=== PATIENT | female | born 1965 | race Caucasian/White ===

== ENCOUNTER 2018-01-05 12:41 | Observation (INO) | payer OTHER, SELFPAY ==
[2017-12-29 11:10] VITALS: BP 125/71; PULSE 61; RESP 16; TEMP 36.7; O2SAT 97; BMI 33.9
--- NOTE | 2017-12-29 11:26 | SDCEKG_ITS ---
Test Reason : Blood Pressure : / mmHG Vent. Rate : 062 BPM Atrial Rate : 062 BPM P-R Int : 164 ms QRS Dur : 082 ms QT Int : 404 ms P-R-T Axes : 029 025 029 degrees QTc Int : 410 ms Normal sinus rhythm with sinus arrhythmia Normal ECG Confirmed by KIMBERLY HARMAN, MITCHELL ([id number]), videotape editor KYLE MENDOZA ([id number]) on 01/01/2018 3:05:49 PM Referred By: Janet Wheeler Confirmed By:MITCHELL HARRIS MD
[2017-12-29 11:50] LABS: Mucous, Urine 0 SEEN /hpf (<or=2+); Red Blood Cells-Urine 0 SEEN /hpf (0-5)
[2017-12-29 12:36] LABS: Color, Urine Yellow (Yellow); Glucose, Dipstick Normal (Normal); Ketone-Dipstick Negative (Negative); Leukocyte Esterase-Dipstick 500 /ul (Negative); Nitrite-Dipstick Negative (Negative); Occult Blood-Urine 10 /ul (Negative); Protein-Dipstick 15 mg/dl (Negative); Urine Bilirubin Dipstick Negative (Negative); Urine Clarity Sl. Cloudy (Clear); Urine Urobilinogen 4 mg/dl (Normal)
[2017-12-29 12:43] LABS: Squamous Epithelial Cells - UA 5-10 SEEN /hpf (5-10); White Blood Cells 10-25 SEEN /hpf (0-5)
[2017-12-29 12:44] LABS: Hematocrit 38.4 % (37-47); Hemoglobin 12.1 g/dl (12.0-15.0); Mean Corp Hgb Conc 31.5 g/gl (32-36); Mean Corpuscular Hgb 29.6 pg (27.0-32.0); Mean Corpuscular Volume 93.9 fL (81-99); Platelet Count 308 K/mm3 (150-450); RBC Distribution Width CV 13.4 % (11.6-14.6); RBC Distribution Width SD 46.2 fl (35.1-43.9); Red Blood Count 4.09 M/mm3 (4.2-5.4); White Blood Count 8.2 K/mm3 (4.4-11.0)
[2017-12-29 12:46] LABS: Bacteria RARE /hpf (None Seen); Scan Indicated on CBC? Y/N NO
[2018-01-05] VITALS (12 sets, daily range): BP systolic 112–155; BP diastolic 54–99; PULSE 68–96; RESP 16–18; TEMP 36–37.1; O2SAT 91–99; BMI 34.9
[2018-01-05] MEDS: Cefazolin 2 GM in 0.9% Normal Saline 100 ML IV (10:35)
[2018-01-05] MEDS: Lubricating Jelly 60 GM Tube 30 GM TOPICAL (10:55)
[2018-01-05] MEDS: Methylene Blue 1% 100 MG/10 ML VIAL (11:40)
[2018-01-05] MEDS: Estrogens,Conj. 1 Tube 1 DOSE (12:30)
[2018-01-05] MEDS: Dextrose 5%-Lactated Ringers 1,000 ML 100 ML IV ×2 (14:04→22:44)
[2018-01-05] MEDS: HYDROcodone Bitartrate/Apap 5/325 Tablet PO ×2 (16:49→22:43)
[2018-01-05] MEDS: Morphine 2 MG/ML Syringe IV (18:05)
[2018-01-05] MEDS: Cephalexin 500 MG Capsule PO (22:42)
[2018-01-06] MEDS: 0.9% NaCl Peripheral Flush Adult/Peds IV ×7 (00:01→15:58)
[2018-01-06] MEDS: Morphine 2 MG/ML Syringe IV ×5 (03:21→13:14)
[2018-01-06 03:27] VITALS: BP 113/59; PULSE 62; RESP 14; TEMP 36.6; O2SAT 98
[2018-01-06] MEDS: HYDROcodone Bitartrate/Apap 5/325 Tablet PO ×3 (06:05→16:46)
[2018-01-06 09:30] VITALS: BP 101/77; PULSE 75; RESP 18; TEMP 36.7; O2SAT 98
[2018-01-06] MEDS: Cephalexin 500 MG Capsule PO (09:58)
[2018-01-06] MEDS: Docusate Sodium 100 MG Capsule PO (09:58)
--- NOTE | 2018-01-06 10:25 | PCM.PN.GU ---
Physical Exam Subjective: Feeling tender in her right hip and lower back. Had rough night due to pain. Tolerating oral intake, no nausea or vomiting. Arambula and packing still intact. Objective: Arambula catheter with clear yellow urine, arambula and vaginal packing removed without incident. - Physical Exam Vital Signs Temp 98.1 F 01/06/18 09:30 Pulse 75 01/06/18 09:30 Resp 18 01/06/18 09:30 BP 101/77 01/06/18 09:30 Pulse Ox 98 01/06/18 09:30 Intake & Output 01/04/18 01/05/18 01/06/18 23:59 23:59 23:59 Intake Total 2568 / 2568 1481 / 1481 Output Total 1999 1150 / 1150 Balance 568 / 568 331 / 331 Weight: 86.8 kg Intake: Oral 200 / 200 300 / 300 IV fluid/meds 2368 / 2368 1181 / 1181 IV #3 2049 Output: Urine 1999 1150 / 1150 General: Alert, Oriented x3, No apparent distress HEENT: Normocephalic Oral: Moist Mucosa Lungs: Normal air movement Abdomen: Soft Rectal: Exam deferred Skin: No rashes Neurological: Cranial nerves II-XII grossly intact, Muscle tone normal, Coordination normal Psych/Mental Status: Normal Affect, Appropriate Medical Necessity - Tobacco Use Smoking Status: Never smoker Tobacco Use: Non-smoker Assessment/Plan Post Op day #1 anterior repair, SSLF, mid-urethral sling and cystoscopy -arambula and vaginal packing are out, await void and PVR -continue supportive care, ambulation and oral intake -HLIV -plan to D/C later today if doing well and pain controlled. If pain remains uncontrolled, will plan to keep over night for pain control.
--- NOTE | 2018-01-06 10:32 | PCM.DC.URO ---
Discharge Diet: No Restrictions Discharge Activity: May Shower, - - No lifting over 5 pounds. Ok for stairs. No exercise. May resume sexual activity in: 8 weeks - and after being seen by me in the office. Lifting Restrictions: 5 pounds Call your doctor if your incision/area has: Increased Pain/ Swelling, Foul Smelling Discharge, - - vaginal spotting and discharge is to be expected. call if questions. Call your doctor if you observe: Fever of 101 or Higher, Inability to urinate, Inability to have a bowel movement, Using more than one pad per hour Suture Line Care: Avoid Pulling/Pushing Allergies/Adverse Reactions: Allergies No Known Allergies Allergy (Verified 12/29/17 11:04) Medications to take at Discharge Albuterol Inhaler [Ventolin Hfa (SP)] 1 - 2 puff INHALATION Q4H PRN PRN 12/29/17 Ascorbic Acid [Vitamin C] 500 mg PO DAILY@0800 12/29/17 Cyclobenzaprine [Flexeril] 10 mg PO DAILY PRN 12/29/17 Diclofenac Sodium [Voltaren] 100 gm TP DAILY PRN 12/29/17 Docusate Sodium [Colace] 100 mg PO DAILY 12/29/17 Fluticasone 0.05% [Flonase Nasal [place]] 1 spray NASAL DAILY 12/29/17 Hydrocodone/Acetaminophen [[place] 10-325 Tablet] 1 each PO Q6H PRN PRN 12/29/17 Meloxicam [Mobic] 15 mg PO DAILY 12/29/17 Multivitamin/Iron/Folic Acid [One Daily Multivitamin-Iron Tb] 1 each PO DAILY 12/29/17 Primary Care Physician: Jena Orozco,Out of [Primary Care Provider] - Test Results: Test results from this visit will be discussed in further detail at your follow-up appointment, if applicable. Please Follow Up With: Dr. Wheeler - in 2 weeks
--- NOTE | 2018-01-06 10:36 | DCINST_ITS ---
Discharge Diet: No Restrictions Discharge Activity: May Shower, - - No lifting over 5 pounds. Ok for stairs. No exercise. May resume sexual activity in: 8 weeks - and after being seen by me in the office. Lifting Restrictions: 5 pounds Call your doctor if your incision/area has: Increased Pain/ Swelling, Foul Smelling Discharge, - - vaginal spotting and discharge is to be expected. call if questions. Call your doctor if you observe: Fever of 101 or Higher, Inability to urinate, Inability to have a bowel movement, Using more than one pad per hour Suture Line Care: Avoid Pulling/Pushing Allergies/Adverse Reactions: Allergies No Known Allergies Allergy (Verified 12/29/17 11:04) Medications to take at Discharge Albuterol Inhaler [Ventolin Hfa (SP)] 1 - 2 puff INHALATION Q4H PRN PRN Ascorbic Acid [Vitamin C] 500 mg PO DAILY@0800 12/29/17 Cyclobenzaprine [Flexeril] 10 mg PO DAILY PRN 12/29/17 Diclofenac Sodium [Voltaren] 100 gm TP DAILY PRN 12/29/17 Docusate Sodium [Colace] 100 mg PO DAILY 12/29/17 Fluticasone 0.05% [Flonase Nasal [place]] 1 spray NASAL DAILY 12/29/17 Hydrocodone/Acetaminophen [[place] 10-325 Tablet] 1 each PO Q6H PRN PRN 12/29/17 Meloxicam [Mobic] 15 mg PO DAILY 12/29/17 Multivitamin/Iron/Folic Acid [One Daily Multivitamin-Iron Tb] 1 each PO DAILY Primary Care Physician: Jena Orozco,Out of [Primary Care Provider] - Test Results: Test results from this visit will be discussed in further detail at your follow- up appointment, if applicable. Please Follow Up With: Dr. Wheeler - in 2 weeks
--- NOTE | 2018-01-06 11:47 | NURSING ---
Pt up to toilet, voided 100cc of urine and then This nurse bladder scanned for 119ml. Will Call Dr. Janet Wheeler to inform per orders.
--- NOTE | 2018-01-06 12:27 | NURSING ---
paged Dr. Wheeler to inform of PVR.
--- NOTE | 2018-01-06 13:51 | NURSING ---
Pt up and voided 100ml and bladder scanned for 155ml. This nurse called and spoke to Dr. Wheeler, informed of this and first void and PVR. Also informed Doctor that pt is still very painful, asking for Morphine Q3hrs and [place] when it is due b/c nothing helping. Just offered heating pad, pt agreeable. New order for Toradol and d/c Morphine.
[2018-01-06] MEDS: Ketorolac 30 MG/ML Syringe IV (15:58)
[2018-01-06] MEDS: Fluticasone 0.05% 1 SPRAY NASAL.SRY NASAL (15:58)
[2018-01-06 16:02] VITALS: BP 102/47; PULSE 67; RESP 18; TEMP 36.8; O2SAT 97
--- NOTE | 2018-01-06 16:04 | NURSING ---
UP to bathroom in the last 15 min. Ms. Ortega urinated 25cc. This nurse then bladder scanned her again for 303ml. Pt denies feeling of retention. I know I'm going a lot. Will continue to monitor. Kpad given along with Toradol x1.
--- NOTE | 2018-01-06 16:46 | NURSING ---
Pt states the Toradol really helped. Rates pain 6 out of 10.
--- NOTE | 2018-01-06 18:12 | NURSING ---
Pt just up to void and voided 75ml and PVR was 200.
--- NOTE | 2018-01-06 19:45 | NURSING ---
Reviewed Pt's discharge in instructions and gave scripts. Pt Discharge vis wheelchair @ 1999.
--- NOTE | 2018-01-23 12:11 | PCM.IMDPSTOP ---
Immediate Post-Op Note Date of Procedure: 01/05/18 Primary Surgeon/Physician: Janet Wheeler MD timber sprinkler: Janet Wheeler Pre-Operative Diagnosis: cystocele, vaginal vault prolapse, stress urinary incontinence, urethral hypermobility Post-Operative Diagnosis: same Surgery/Procedure Performed:: anterior repair, right sacrospinous ligament fixation, midurethral sling, cystoscopy with bilateral ureteral catheterization Description of Surgical Findings:: anterior repair without mesh, capio SSLF with non-absorbable suture, [place] sling with cystoscopy and ureteral catheterization Estimated Blood Loss: 150cc Specimen's removed: none Drains: arambula Type of Anesthesia:: General - Admit VTE Documentation VTE Mechan Device Prophylaxis: SCD's Reason prophylaxis not ordered:: Treatment Not Indicated
--- NOTE | 2018-01-23 12:15 | OP.PN_ITS ---
Immediate Post-Op Note Date of Procedure: 01/05/18 Primary Surgeon/Physician: Janet Wheeler MD bilingual operator: Janet Wheeler Pre-Operative Diagnosis: cystocele, vaginal vault prolapse, stress urinary incontinence, urethral hypermobility Post-Operative Diagnosis: same Surgery/Procedure Performed:: anterior repair, right sacrospinous ligament fixation, midurethral sling, cystoscopy with bilateral ureteral catheterization Description of Surgical Findings:: anterior repair without mesh, capio SSLF with non-absorbable suture, [place] sling with cystoscopy and ureteral catheterization Estimated Blood Loss: 150cc Specimen's removed: none Drains: arambula Type of Anesthesia:: General - Admit VTE Documentation VTE Mechan Device Prophylaxis: SCD's Reason prophylaxis not ordered:: Treatment Not Indicated
--- NOTE | 2018-01-23 12:21 | OP.PCM_ITS ---
Problem List (1) Cystocele Status: Acute (2) Vaginal vault prolapse Status: Acute (3) Urethral hypermobility Status: Acute (4) Stress incontinence (female) (male) Status: Acute Report of Operation Date of Procedure: 01/05/18 Pre-Operative Diagnosis: cystocele, vaginal vault prolapse, stress urinary incontinence, urethral hypermobility Post-Operative Diagnosis: same Surgery/Procedure Performed:: anterior repair, right sacrospinous ligament fixation, midurethral sling, cystoscopy with bilateral ureteral catheterization Description of Surgical Findings:: anterior repair without mesh, capio SSLF with non-absorbable suture, [place] sling with cystoscopy and ureteral catheterization manager workers compensation: Janet Wheeler Type of Anesthesia:: General Specimen's removed: none Drains: arambula Estimated Blood Loss (mL): 150cc Description of Procedure: The patient is a 52-year-old female with pelvic organ prolapse who presented to the office desiring definitive surgical intervention. After full evaluation with urodynamics and a discussion regarding all of the risks benefits and alternatives, the patient agreed to an anterior repair without mesh , sacrospinous ligament fixation, mid urethral sling and cystoscopy. The patient was taken to the operating room and placed on the operating room excessive vital signs throughout the case. Once anesthesia was a probably administered patient was placed into the exaggerated dorsal lithotomy and Trendelenburg position. She was prepped and draped in usual sterile fashion. A 18 [place] Arambula catheter was inserted into the urethra and the bladder was emptied. At this time the cystocele and apical prolapse were clearly visible. The anterior vaginal wall was injected submucosally with 1% lidocaine with epinephrine for hemostatic control and hydrostatic dissection. A midline vertical incision over the defect was made approximately 2 cm in length. Both sharp and blunt dissection ensued until the white line was visible on either side. On the patient's right side this was dissected away until the area of the ischial spine was clearly palpable and the sacrospinous ligament was cleared and freed from surrounding tissues. At this time using a Capio line driver, a suture was placed through the sacrospinous ligament and brought out into the area of the apex of the vaginal mucosa care being taken to avoid entry into the urinary bladder. Attention was then turned towards the white line where the pubocervical fascia was brought together in an interrupted fashion with 2 layers of closure using 2-0 Vicryl suture. At this time the [place] suture was tied to the sacrospinous ligament and the midline incision was closed using running interlocking 2-0 Vicryl. Attention was then turned towards the mid urethra which was once again infiltrated submucosally for hemostatic control and hydrostatic dissection. A vertical midline incision approximately 1.5 cm in size was then made and both sharp and blunt dissection ensued until the obturator complexes were easily palpable. Using the trochars, the [place] was placed first on the patient's right side without difficulty followed by passage on the left side. The mesh lay flat against the urethra and was tightened to coapt against the tissues appropriately. At this time the tensioning suture was cut in the midline incision was closed with running interlocking 2-0 Vicryl suture. The Arambula catheter was removed and a cystourethroscopy was performed. The patient had been given a small dose of indigo carmine however no blue urine was identified. Bilateral ureteral catheterization was performed followed by good ureteral jets bilaterally. There is no blood and no difficulty with catheterization. Of note, there is no mesh within the urinary bladder or urethra, however there was a small area of hemorrhage in the posterior bladder wall likely from a needle that was removed. There was no foreign material within the urinary bladder and there was no active bleeding. The Arambula catheter was replaced in the patient's vagina was packed with Premarin cream and vaginal packing. She was then awakened and taken to the recovery room in good condition. There were no complications during this procedure. - Complications None - Admit VTE Documentation VTE Mechan Device Prophylaxis: SCD's Reason prophylaxis not ordered:: Treatment Not Indicated
--- NOTE | 2018-01-24 12:14 | PCM.HP.STD ---
Problem List (1) Cystocele Status: Acute (2) Vaginal vault prolapse Status: Acute (3) Urethral hypermobility Status: Acute (4) Stress incontinence (female) (male) Status: Acute History of Present Illness Date of Admission: 01/05/18 Chief Complaint: S/P repair cystocele, vaginal vault prolapse, stress incontinence The patient is a 52 year old F [] Past Medical History Medical History: Medical History (Last Reviewed 01/24/18 @ 12:16 by Janet Wheeler MD) Asthma J45.909 Back pain M54.9 Constipation K59.00 Allergies No Known Allergies Allergy (Verified 12/29/17 11:04) Home Medications: Ambulatory Orders Medication Instructions Recorded Albuterol Inhaler [Ventolin Hfa] 1 - 2 puff INHALATION Q4H PRN PRN 12/29/17 Ascorbic Acid [Vitamin C] 500 mg PO DAILY@0800 12/29/17 Cyclobenzaprine [Flexeril] 10 mg PO DAILY PRN 12/29/17 Diclofenac Sodium [Voltaren] 100 gm TP DAILY PRN 12/29/17 Docusate Sodium [Colace] 100 mg PO DAILY 12/29/17 Fluticasone 0.05% [Flonase Nasal 1 spray NASAL DAILY 12/29/17 [place]] Hydrocodone/Acetaminophen [[place] 1 each PO Q6H PRN PRN 12/29/17 10-325 Tablet] Meloxicam [Mobic] 15 mg PO DAILY 12/29/17 Multivitamin/Iron/Folic Acid [One 1 each PO DAILY 12/29/17 Daily Multivitamin-Iron Tb] Cephalexin [Keflex] 500 mg PO Q12 3 Days #6 cap NS 01/06/18 Hydrocodone Bitart/[place] 5-325 1 - 2 tab PO Q6H PRN PRN 7 Days 01/06/18 [[place] 5/325] #30 tab Surgical History: noncontributory Psychiatric History: No pertinent 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 Lives: With Family Smoking Status: Never smoker Tobacco Use: Non-smoker Drugs: None VTE Information - Inpt Only VTE Present on Admission: Yes VTE Mechan Device Prophylaxis: SCD's VTE Pharm Prophylaxis ordered?: No Reason prophylaxis not ordered:: Treatment Not Indicated - Physical Exam General: Alert, Oriented x3, Cooperative HEENT: Atraumatic, Normocephalic Oral: Moist Mucosa Neck: Supple, No JVD Lungs: Clear to auscultation, Normal air movement Cardiovascular: Regular rate, Regular Rhythm Abdomen: Soft, Non Tender, Non-Distended Extremities: No clubbing, No Calf Tenderness Skin: No rashes Musculoskeletal: No Tenderness to Palpation of Joints or Extremities, No Muscle Wasting Neurological: Cranial nerves II-XII grossly intact, Neuro grossly intact Psych/Mental Status: Normal Affect, Appropriate Vital Signs Temp Pulse Resp BP Pulse Ox 98.2 F 67 18 102/47 L 97 01/06/18 16:02 01/06/18 16:02 01/06/18 16:02 01/06/18 16:02 01/06/18 16:02 Oxygen Delivery Method Room Air Weight: 86.8 kg Body Mass Index (BMI) 34.9 Assessment/Plan All Active Problems (Last Reviewed 01/24/18 @ 12:16 by Janet Wheeler MD) Cystocele (Acute) Vaginal vault prolapse (Acute) Urethral hypermobility (Acute) Stress incontinence (female) (male) (Acute) anterior repair, right sacrospinous ligament fixation, midurethral sling, cystoscopy.
--- NOTE | 2018-01-24 12:19 | HP.PCM_ITS ---
Problem List (1) Cystocele Status: Acute (2) Vaginal vault prolapse Status: Acute (3) Urethral hypermobility Status: Acute (4) Stress incontinence (female) (male) Status: Acute History of Present Illness Date of Admission: 01/05/18 Chief Complaint: S/P repair cystocele, vaginal vault prolapse, stress incontinence The patient is a 52 year old F [] Past Medical History Medical History: Medical History (Last Reviewed 01/24/18 @ 12:16 by Janet Wheeler MD) Asthma J45.909 Back pain M54.9 Constipation K59.00 Allergies No Known Allergies Allergy (Verified 12/29/17 11:04) Home Medications: Ambulatory Orders Medication Instructions Recorded Albuterol Inhaler [Ventolin Hfa] 1 - 2 puff INHALATION Q4H PRN PRN 12/29/17 Ascorbic Acid [Vitamin C] 500 mg PO DAILY@0800 12/29/17 Cyclobenzaprine [Flexeril] 10 mg PO DAILY PRN 12/29/17 Diclofenac Sodium [Voltaren] 100 gm TP DAILY PRN 12/29/17 Docusate Sodium [Colace] 100 mg PO DAILY 12/29/17 Fluticasone 0.05% [Flonase Nasal 1 spray NASAL DAILY 12/29/17 [place]] Hydrocodone/Acetaminophen [[place] 1 each PO Q6H PRN PRN 12/29/17 10-325 Tablet] Meloxicam [Mobic] 15 mg PO DAILY 12/29/17 Multivitamin/Iron/Folic Acid [One 1 each PO DAILY 12/29/17 Daily Multivitamin-Iron Tb] Cephalexin [Keflex] 500 mg PO Q12 3 Days #6 cap NS 01/06/18 Hydrocodone Bitart/[place] 5-325 1 - 2 tab PO Q6H PRN PRN 7 Days 01/06/18 [[place] 5/325] #30 tab Surgical History: noncontributory 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 Lives: With Family Smoking Status: Never smoker Tobacco Use: Non-smoker Drugs: None VTE Information - Inpt Only VTE Present on Admission: Yes VTE Mechan Device Prophylaxis: SCD's VTE Pharm Prophylaxis ordered?: No Reason prophylaxis not ordered:: Treatment Not Indicated - Physical Exam General: Alert, Oriented x3, Cooperative HEENT: Atraumatic, Normocephalic Oral: Moist Mucosa Neck: Supple, No JVD Lungs: Clear to auscultation, Normal air movement Cardiovascular: Regular rate, Regular Rhythm Abdomen: Soft, Non Tender, Non-Distended Extremities: No clubbing, No Calf Tenderness Skin: No rashes Musculoskeletal: No Tenderness to Palpation of Joints or Extremities, No Muscle Wasting Neurological: Cranial nerves II-XII grossly intact, Neuro grossly intact Psych/Mental Status: Normal Affect, Appropriate Vital Signs Temp Pulse Resp BP Pulse Ox 98.2 F 67 18 102/47 L 97 01/06/18 16:02 01/06/18 16:02 01/06/18 16:02 01/06/18 16:02 01/06/18 16:02 Oxygen Delivery Method Room Air Weight: 86.8 kg Body Mass Index (BMI) 34.9 Assessment/Plan All Active Problems (Last Reviewed 01/24/18 @ 12:16 by Janet Wheeler MD) Cystocele (Acute) Vaginal vault prolapse (Acute) Urethral hypermobility (Acute) Stress incontinence (female) (male) (Acute) anterior repair, right sacrospinous ligament fixation, midurethral sling, cystoscopy.
== END 2018-01-06 20:00 | disposition home or self-care (01) ==
LOC: MS3 13:28
PROVIDERS: Admitting Provider Urology; Visit Provider Urology
PROC: (CPT 57260; principal; 2018-01-05 09:45)
DX: N39.3 Stress incontinence (female) (male) (principal); N81.10 Cystocele, unspecified; N36.41 Hypermobility of urethra
CPT/HCPCS: 00942; 57240; 57282; 57288; 36415; 81001; 85027; 87086; 93005; 96361; 96374; 96375; 96376; 99218; J7120; A4216; C1758; G0378; G0379; J2405